=== PATIENT | female | born 1985 | race Caucasian/White ===

== ENCOUNTER 2024-06-18 05:01 | Emergency (ER) | payer OTHER ==
[~2024-06-18] VITALS: Ht 162.6 cm; Wt 147.7 kg
[2024-06-18 05:16] VITALS: TEMP 97.9
[2024-06-18] MEDS ORDERED: ACYC200C24 PO (05:16)
[2024-06-18 05:59] LABS: COVID AG,FIA SOURCE NASAL SWAB
[2024-06-18 06:48] LABS: SARS-COV2 (COVID) ANTIGEN,FIA Negative (Negative)
[2024-06-18 06:50] LABS: INFLUENZA TYPE A NEGATIVE FOR TYPE A (NEGATIVE); INFLUENZA TYPE B NEGATIVE FOR TYPE B (NEGATIVE)
[2024-06-18] MEDS: PredniSONE 20 MG TABLET PO ONE (07:02)
[2024-06-18] MEDS: DiphenhydrAMINE HCL 25 MG CAPSULE PO ONE (07:02)
[2024-06-18] MEDS ORDERED: 0.9% SODIUM CHLORIDE 5 ML NEB SOLUTION NEB ONE (07:05)
[2024-06-18] MEDS: IPRATROPIUM BROMIDE 0.5 MG/2.5 ML NEB SOLUTION NEB ONE (07:07)
[2024-06-18] MEDS: ALBUTEROL SULFATE 2.5 MG/0.5 ML NEB SOLUTION NEB ONE (07:07)
[2024-06-18 07:10] VITALS: PULSE 90; RESP 20; O2SAT 95
[2024-06-18 07:11] VITALS: PULSE 90; RESP 20; O2SAT 95
[2024-06-18 07:21] VITALS: BP 124/89; PULSE 84; RESP 20; O2SAT 95; O2SAT 98
[2024-06-18 07:37] LABS: BASOPHILS % (AUTO) 0.6 % (0.0-2.0); EOSINOPHILS % (AUTO) 0 % (1.0-6.0); HEMOGLOBIN 11.2 g/dL (13.5-17.5); LYMPHOCYTES % (AUTO) 23.5 % (22.0-44.0); MEAN CORPUSCULAR HEMOGLOBIN 25.9 pg (26.0-34.0); MEAN CORPUSCULAR HGB CONC 31.9 G/dL (31.0-37.0); MEAN CORPUSCULAR VOLUME 81 fL (80-100); MONOCYTES # (AUTO) 0.4 K/uL (0.1-1.0); MONOCYTES % (AUTO) 9.2 % (2.0-9.0); NEUTROPHILS # (AUTO) 2.9 K/uL (1.8-7.7); NEUTROPHILS % (AUTO) 66.7 % (40.0-70.0); PLATELET COUNT (AUTO) 159 K/uL (150-450); RED BLOOD CELL COUNT(AUTO) 4.32 MIL/uL (4.50-5.90); RED CELL DISTRIBUTION WIDTH 15.2 % (11.5-14.5); WHITE BLOOD COUNT (AUTO) 4.4 K/uL (4.5-11.0)
[2024-06-18 07:51] LABS: ANION GAP 13 mmol/L (8-16); CALCIUM, TOTAL 8.4 mg/dL (8.8-10.5); CARBON DIOXIDE 23 mmol/L (22-29); CHLORIDE 103 mmol/L (98-107); CREATININE 0.83 mg/dL (0.60-1.30); GLOMERULAR FILTR. RATE CALC > 60 mL/min (>60); GLUCOSE,RANDOM 146 mg/dL (70-110); POTASSIUM 3.4 mmol/L (3.5-5.1); SODIUM SERUM 139 mmol/L (136-145); UREA NITROGEN, BLOOD 11 mg/dL (7-18)
[2024-06-18 08:11] LABS: ABG BASE EXCESS -6.3 mmol/L (-2.0-3.0); ABG CARBOXYHEMOGLOBIN 0.1 % (0.5-1.5); ABG METHEMOGLOBIN 0.3 % (0.0-1.5); ABG OXYGEN CONTENT 15.4 mL/dL (15.0-23.0); ABG OXYGEN SATURATION 96.1 % (94.0-98.0); ABG OXYHEMOGLOBIN 95.7 % (94.0-98.0); ABG PCO2 31 mmHg (32.0-45.0); ABG PH 7.394 (7.350-7.450); ABG TOTAL HEMOGLOBIN 11.4 G/dL (12.0-16.0); PO2, ARTERIAL BG 82.1 mmHg (83.0-108.0); SOURCE, BLOOD GAS ARTERIAL; TEMPERATURE, FAHRENHEIT, BG 98.6 FAHREN (96.0-98.6)
[2024-06-18 08:12] LABS: ABG A-A DIFF O2 30.4 mmHg (10-20.0); ALLEN TEST, BLOOD GAS Positive; O2 DEVICE,BLOOD GAS ROOM AIR (ROOM AIR); SITE, BLOOD GAS RT RADIAL
[2024-06-18] MEDS ORDERED: AZIT250T9 PO (08:15)
[2024-06-18] MEDS ORDERED: PRED-554 PO (08:16)
[2024-06-18] MEDS: ALBUTEROL SULFATE HFA 90 MCG/PUFF 8 GM INHALER IH ONE (08:26)
== END 2024-06-18 09:41 | disposition home or self-care (01) ==
LOC: EMS 05:09 → EDSEX 05:09 → EMS 09:41
DX: J18.9 Pneumonia, unspecified organism (principal); J98.01 Acute bronchospasm; Z79.624 Long term (current) use of inhibitors of nucleotide synthesis; Z98.890 Other specified postprocedural states; Z20.822 Contact with and (suspected) exposure to COVID-19
CPT/HCPCS: 99284; 71045; 87426; 80048; 85025; 87804; 36415; 82805; 94640; 82803; J7512; J3535; J7613